=== PATIENT | male | born 1960 | race Caucasian/White ===

== ENCOUNTER 2019-07-04 06:51 | Emergency (ER) | payer OTHER, SELFPAY ==
[2019-07-04] MEDS ORDERED: HYDROCODONE/APAP 5/325 MG TAB ONE (07:46)
--- NOTE | 2019-07-04 08:29 | RAD REPORT ---
EXAM DESCRIPTION: RAD - Pelvis - 07/04/2019 8:14 am CLINICAL HISTORY: left hip pain COMPARISON: No comparisons TECHNIQUE: AP imaging of the pelvis was obtained. FINDINGS: No fracture of the bony pelvis. No fracture, dislocation or other acute hip joint finding. No significant SI joint findings. No soft tissue abnormality. IMPRESSION: Negative pelvis for acute or significant findings.
--- NOTE | 2019-07-04 08:30 | RAD REPORT ---
EXAM DESCRIPTION: RAD - Hip Left 2 View - 07/04/2019 8:14 am CLINICAL HISTORY: Left hip pain following lifting injury COMPARISON: None. FINDINGS: AP and frogleg views of the left hip were obtained. There is no fracture or dislocation. N o acute or destructive bony process seen. No joint effusion suspected. No soft tissue abnormality. IMPRESSION: Negative left hip examination for acute or significant findings.
--- NOTE | 2019-07-04 08:51 | ER ---
Nurse's Notes [facility] Name: Michele Cantu Age: 58 yrs Sex: Male : 1960 Arrival Date: 07/04/2019 Time: 06:59 Bed 13 Private MD: Diagnosis: Strain of muscle, fascia and tendon of left hip Presentation: 07/04 07:18 Presenting complaint: Patient states: L hip pain that began 5-6 days ago after lifting heavy boxes for a friend. Pt reports pain was better yesterday, but after working all day, seemed to aggravate the pain. Also c/o numbness to L toes after the pain began. Transition of care: patient was not received from another setting of care. Onset of symptoms was June 28, 2019. Risk Assessment: Do you want to hurt yourself or someone else? Patient reports no desire to harm self or others. Initial Sepsis Screen: Does the patient meet any 2 criteria? HR > 90 bpm. Does the patient have a suspected source of infection? No. Patient's initial sepsis screen is negative. Care prior to arrival: None. 07:18 Method Of Arrival: Ambulatory ss 07:18 Acuity: ADELA 4 ss Historical: - Allergies: 07:23 No Known Allergies; ss - Home Meds: 07:23 "supposed to be taking BP medication" [Active]; ss - PMHx: 07:23 Hypertension; ss - PSHx: 07:23 colon resection; ss - Immunization history:: Adult Immunizations up to date. - Social history:: Smoking status: Patient denies any tobacco usage or history of. - Ebola Screening: : Patient denies exposure to infectious person Patient denies travel to an Ebola-affected area in the 21 days before illness onset. Screenin:25 Abuse screen: Denies threats or abuse. Denies injuries from another. Nutritional ss screening: No deficits noted. Tuberculosis screening: Never had TB. Fall Risk None identified. Assessment: 07:26 General: Appears in no apparent distress. comfortable, Behavior is calm, cooperative. ss Pain: Complains of pain in L hip area Pain currently is 0 out of 10 on a pain scale. at worst was 7 out of 10 on a pain scale. Quality of pain is described as aching, sharp, Pain began 5-6 days Is intermittent. Neuro: Level of Consciousness is awake, alert, obeys commands, Oriented to person, place, time, situation, Pupils are PERRLA. Neuro: Reports intermittent numbness to L toes since hip pain began. Cardiovascular: Capillary refill < 3 seconds is brisk in bilateral fingers. Respiratory: Airway is patent Respiratory effort is even, unlabored, Respiratory pattern is regular, symmetrical. GI: Patient currently denies abdominal pain, diarrhea, nausea, vomiting. : No signs and/or symptoms were reported regarding the genitourinary system. Denies inability to void. EENT: Oral mucosa is moist. Derm: Skin is intact, is healthy with good turgor, Skin is dry, Skin is pink, warm \\T\\ dry. normal. Musculoskeletal: Range of motion: intact in all extremities. Vital Signs: 07:23 BP 143 / 86; Pulse 94; Resp 16; Temp 98.0(O); Pulse Ox 96% on R/A; Weight 106.59 kg; ss Height 5 ft. 8 in. (172.72 cm); Pain 0/10; 07:23 Body Mass Index 35.73 (106.59 kg, 172.72 cm) ss ED Course: 06:59 Patient arrived in ED. ag3 07:18 Renetta Chavez, MANPREET is Primary Nurse. ss 07:19 Pavel Owen PA is PHCP. [facility] 07:19 Julio Fisher MD is Attending Physician. jmm 07:21 Triage completed. ss 07:23 Arm band placed on right wrist. ss 07:25 Patient has correct armband on for positive identification. Bed in low position. Call ss light in reach. 08:13 Pelvis XRAY In Process Unspecified. EDMS 08:13 Hip Left 2 View XRAY In Process Unspecified. EDMS 08:51 Javier Tena MD is Referral Physician. jmm 08:58 No provider procedures requiring assistance completed. Patient did not have IV access ss during this emergency room visit. Administered Medications: 07:49 Drug: Ferriday 5 mg-325 mg 1 tabs Route: PO; ss 08:59 Follow up: Response: No adverse reaction; Pain is decreased; Pain is decreasedRASS 0 ss Outcome: 08:51 Discharge ordered by . jmm 08:58 Discharged to home ambulatory, with family. ss 08:58 Condition: good 08:58 Discharge instructions given to patient, family, Instructed on discharge instructions, follow up and referral plans. medication usage, Demonstrated understanding of instructions, follow-up care, medications, Prescriptions given X 2. 08:59 Patient left the ED. ss Signatures: Dispatcher [employer] EDPavel Pederson PA PA jmm Smirch, Shelby, MANPREET RN Ruth Smith ag3
--- NOTE | 2019-07-04 08:51 | EDPHYS ---
Physician Documentation [facility] Name: Michele Cantu Age: 58 yrs Sex: Male : 1960 Arrival Date: 07/04/2019 Time: 06:59 Bed 13 Private MD: ED Physician Julio Fisher HPI: 07/04 07:41 This 58 yrs old Male presents to ER via Ambulatory with complaints of Back jmm Pain. 07:41 The patient presents with pain that is acute. Onset: The symptoms/episode jmm began/occurred acutely, 2 day(s) ago. Associated signs and symptoms: Pertinent positives: numbness. Modifying factors: The patient symptoms are alleviated by nothing, the patient symptoms are aggravated by any movement. This is a 58 year old male with a history of htn that presents to the ED with complaints of left hip pain. Patient states he turned while lifting a heavy box and felt a pop. Patient complains of occasional numbness in the left foot. . Historical: - Allergies: 07:23 No Known Allergies; ss - Home Meds: 07:23 "supposed to be taking BP medication" [Active]; ss - PMHx: 07:23 Hypertension; ss - PSHx: 07:23 colon resection; ss - Immunization history:: Adult Immunizations up to date. - Social history:: Smoking status: Patient denies any tobacco usage or history of. - Ebola Screening: : Patient denies exposure to infectious person Patient denies travel to an Ebola-affected area in the 21 days before illness onset. ROS: 07:41 Constitutional: Negative for fever, chills, and weight loss, Cardiovascular: Negative jmm for chest pain, palpitations, and edema, Respiratory: Negative for shortness of breath, cough, wheezing, and pleuritic chest pain. 07:41 MS/extremity: Positive for pain. 07:41 All other systems are negative. Exam: 07:41 Constitutional: This is a well developed, well nourished patient who is awake, alert, jmm and in no acute distress. Head/Face: atraumatic. Eyes: EOMI, no conjunctival erythema appreciated ENT: Moist Mucus Membranes Neck: Trachea midline, Supple Chest/axilla: Normal chest wall appearance and motion. Cardiovascular: Regular rate and rhythm. No edema appreciated Respiratory: Normal respirations, no respiratory distress appreciated Abdomen/GI: Non distended, soft 07:41 Back: pain, ROM is normal, vertebral tenderness, is not appreciated. 07:41 Musculoskeletal/extremity: pain elicited at the left lateral glute, no bony tenderness appreciated. 07:41 Musculoskeletal/extremity: Full sensation appreciated to the left foot, full dorsalis pedis pulse. 07:41 Skin: Appearance: Color: normal in color. 07:41 Neuro: Orientation: is normal, Mentation: is normal, Memory: is normal. 07:41 Psych: Behavior/mood is pleasant, cooperative. Vital Signs: 07:23 BP 143 / 86; Pulse 94; Resp 16; Temp 98.0(O); Pulse Ox 96% on R/A; Weight 106.59 kg; ss Height 5 ft. 8 in. (172.72 cm); Pain 0/10; 07:23 Body Mass Index 35.73 (106.59 kg, 172.72 cm) ss MDM: 07:31 Patient medically screened. [facility] 08:50 Data reviewed: vital signs, nurses notes. Counseling: I had a detailed discussion with [facility] the patient and/or guardian regarding: the historical points, exam findings, and any diagnostic results supporting the discharge/admit diagnosis, radiology results, the need for outpatient follow up, to return to the emergency department if symptoms worsen or persist or if there are any questions or concerns that arise at home. ED course: imaging studies negative, patient advised to follow up with ortho for further evaluation. patient understood and agrees with the plan of care. . 07/04 07:39 Order name: Pelvis XRAY; Complete Time: 08:36 [facility] 07/04 07:39 Order name: Hip Left 2 View XRAY; Complete Time: 08:36 [facility] Administered Medications: 07:49 Drug: Binford 5 mg-325 mg 1 tabs Route: PO; ss 08:59 Follow up: Response: No adverse reaction; Pain is decreased; Pain is decreasedRASS 0 ss Disposition: 09:18 Co-signature as Attending Physician, Julio Fisher MD. rn Disposition: 07/04/19 08:51 Discharged to Home. Impression: Strain of muscle, fascia and tendon of left hip. - Condition is Stable. - Discharge Instructions: Adductor Muscle Strain, Gluteal Strain. - Prescriptions for Prednisone 20 mg Oral Tablet - take 3 tablet by ORAL route once daily for 5 days; 15 tablet. orphenadrine citrate 100 mg Oral Tablet Sustained Release - take 1 tablet by ORAL route 2 times per day As needed; 20 tablet. - Work release form, Medication Reconciliation Form, Thank You Letter, Antibiotic Education, Prescription Opioid Use form. - Follow up: Javier Tena MD; When: 2 - 3 days; Reason: Recheck today's complaints, Continuance of care, Re-evaluation by your physician. Signatures: Dispatcher [employer] EDMS Pavel Owen PA PA jmm Nieto, Roman, MD MD rn Renetta Chavez RN RN ss Corrections: (The following items were deleted from the chart) 08:59 08:51 07/04/2019 08:51 Discharged to Home. Impression: Strain of muscle, fascia and ss tendon of left hip. Condition is Stable. Forms are Medication Reconciliation Form, Thank You Letter, Antibiotic Education, Prescription Opioid Use. Follow up: Dr. Javier Tena; When: 2 - 3 days; Reason: Recheck today's complaints, Continuance of care, Re-evaluation by your physician. mary jane
[2019-07-04 09:05] VITALS: BP 143/86; TEMP 98; O2SAT 96
== END 2019-07-04 08:59 | disposition home or self-care (01) ==
LOC: ER 06:51
DX: S76.012A Strain of muscle, fascia and tendon of left hip, initial encounter (principal); X58.XXXA Exposure to other specified factors, initial encounter; Y93.89 Activity, other specified; Y92.9 Unspecified place or not applicable; I10 Essential (primary) hypertension
CPT/HCPCS: 72170; 99283